=== PATIENT | female | born 2000 | race Caucasian/White ===

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

== ENCOUNTER 2019-01-24 12:01 | Day surgery (SDC) | payer OTHER ==
[~2019-01-24] VITALS: Ht 160 cm; Wt 46.9 kg
[~2019-01-24 12:01] MED LIST: RANI150T5 PO; [UNRECOGNIZED DRUG - REMARK]
[2019-01-24 12:46] VITALS: Ht 160 cm; Wt 46.9 kg
[2019-01-24 12:49] VITALS: BP 121/73; PULSE 80; RESP 20
--- NOTE | 2019-01-24 13:10 | PREAC ---
Date/Time of Note Date/Time of Note DATE: 01/24/19 TIME: 13:08 Anesthesia Eval and Record Evaluation Time Pre-Procedure Interview DATE: 01/24/19 TIME: 13:08 Age 18 Sex female NPO: 8 hrs Preoperative diagnosis GERD Planned procedure EGD Past Medical History Past Medical History: Includes GI: GERD Surgery & Anesthesia Issues No known issue Meds Anticoagulation: No Beta Ivette within 24 hr: No Reason Beta Ivette not given: Pt. not on B-Ivette Discontinued Reported Medications [Inhaler Bid Prn] No Conflict Check 01/15/17 Ranitidine Hcl* (Ranitidine Hcl*) 150 Mg Tablet, 150 MG PO Q12, #60 TAB 01/15/17 Meds reviewed: Yes Allergies Coded Allergies: No Known Drug Allergies (Verified Allergy, Unknown, 01/15/17) Allergies Reviewed: Yes Labs/Studies Labs Reviewed: Reviewed by anesthesiologist test: Negative Studies: ECG (n/a), CXR (n/a) Pre-procedure Exam Last vitals Vital Signs Date Temp Pulse Resp B/P (MAP) Pulse Ox O2 O2 Flow FiO2 Time Delivery Rate 01/24/19 98.6 80 20 121/73 100 Room Air 12:49 (89) Airway: Adequate mouth opening, Adequate thyromental dist Mallampati: Mallampati II Teeth: Normal Lung: Normal Heart: Normal ASA Physical Status ASA physical status: 2 Emergency: None Planned Anesthetic General/MAC: MAC Planned Pain Management Parenteral pain med Pre-operative Attestations Prior to commencing anesthesia and surgery, the patient was re-evaluated, there was verification of: *The patient's identity *The results of appropriate recent lab work and preoperative vital signs *The above evaluation not changing prior to induction *Anesthetic plan, risk benefits, alternative and complications discussed with patient/family; questions answered; patient/family understands, accepts and wishes to proceed. RODNEY ANDRE MD Jan 24, 2019 13:09
[2019-01-24] MEDS ORDERED: FENTAnyl 50 MCG/ML VIAL ONE (14:57)
[2019-01-24] MEDS ORDERED: PROPOFOL 20 ML ONE (14:57)
[2019-01-24 15:45] VITALS: BP 102/64; RESP 16
--- NOTE | 2019-01-25 09:41 | PAC ---
Date/Time of Note Date/Time of Note DATE: 01/25/19 TIME: 09:41 Post-Anesthesia Notes Post-Anesthesia Note Last documented vital signs Vital Signs Date Temp Pulse Resp B/P (MAP) Pulse Ox O2 O2 Flow FiO2 Time Delivery Rate 01/24/19 98.5 75 16 102/64 99 Room Air 15:45 (77) 01/24/19 98.6 80 12:49 Activity: WNL Respiratory function: WNL Cardiovascular function: WNL Mental status: Baseline Pain reasonably controlled: Yes Hydration appropriate: Yes Nausea/Vomiting absent: No GINO BARONE MD Jan 25, 2019 09:41
== END 2019-01-24 15:56 | disposition home or self-care (01) ==
LOC: GIL 12:01
PROVIDERS: ATTEND Internal Medicine Gastroenterology
DX: K29.30 Chronic superficial gastritis without bleeding (principal)
CPT/HCPCS: 43239; 84703; 88305; 88312; J3010; Z7610